=== PATIENT | male | born 1970 ===

== ENCOUNTER 2022-06-05 10:02 | Emergency (ER) | payer BC ==
[~2022-06-05] VITALS: Ht 195.6 cm; Wt 108.9 kg
[2022-06-05] MEDS ORDERED: XANAX XR0.5 MG PO (10:28)
[2022-06-05] MEDS ORDERED: BIKTARVY 30-121 EACH PO (10:29)
== END 2022-06-05 16:24 | disposition left against medical advice (07) ==
LOC: ER 10:02
DX: R07.89 Other chest pain (principal); B20 Human immunodeficiency virus [HIV] disease